=== PATIENT | male | born 1960 | race Caucasian/White ===

== ENCOUNTER 2017-01-26 17:21 | Emergency (ER) | payer OTHER ==
[~2017-01-26] VITALS: Ht 188 cm; Wt 116.3 kg
[2017-01-26 18:22] VITALS: BP 132/87
[2017-01-26] MEDS ORDERED: DIAZEPAM 5 MG TABLET ONE (18:57)
[2017-01-26] MEDS ORDERED: OXYcodone/APAP 5/325MG TABLET ONE (18:57)
[2017-01-26] MEDS ORDERED: KETOROLAC 30 MG/1 ML ONE (18:57)
[2017-01-26] MEDS ORDERED: OXYcodone/APAP 5/325MG TABLET PO ONE (19:00)
[2017-01-26] MEDS ORDERED: DIAZEPAM 5 MG TABLET PO ONE (19:00)
[2017-01-26] MEDS ORDERED: KETOROLAC 30 MG/1 ML IM ONE (19:00)
[2017-01-26] MEDS ORDERED: ONDANSETRON ODT 4 MG ONE ×2 (19:12→20:12)
[2017-01-26] MEDS ORDERED: ONDANSETRON ODT 4 MG PO ONE ×2 (19:30→20:00)
== END 2017-01-26 20:18 | disposition home or self-care (01) ==
LOC: ED 20:00
DX: M51.34 Other intervertebral disc degeneration, thoracic region (principal); M54.2 Cervicalgia; K21.9 Gastro-esophageal reflux disease without esophagitis
CPT/HCPCS: 72072; 72125; 96372; 99284; J1885; Q0162

== ENCOUNTER 2017-03-08 18:08 | Emergency (ER) | payer OTHER ==
[~2017-03-08] VITALS: Ht 188 cm; Wt 118.6 kg
[2017-03-08 18:10] VITALS: BP 148/96
== END 2017-03-08 20:20 | disposition home or self-care (01) ==
LOC: ED 20:00
DX: S92.354A Nondisplaced fracture of fifth metatarsal bone, right foot, initial encounter for closed fracture (principal); W19.XXXA Unspecified fall, initial encounter; Y93.89 Activity, other specified; Y92.009 Unspecified place in unspecified non-institutional (private) residence as the place of occurrence of the external cause; Y99.8 Other external cause status
CPT/HCPCS: 29515

== ENCOUNTER 2019-11-09 11:06 | Emergency (ER) | payer BC, OTHER ==
[~2019-11-09] VITALS: Ht 188 cm; Wt 112.2 kg
--- NOTE | 2019-11-09 11:30 | NUR ---
THIS IS A 59 YO M W/ C/O NUMBNESS IN RT GROIN RADIATES DOWN LEG X2 WEEKS. CAN NOT FEEL WHEN WIPING OR WHEN HAVING INTERCOURSE. 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 LAST NIGHT HAD EPISODE OF BOWEL INCONTINENCE. HX: SPONDYLOSIS, 3 EPIDURALS BETWEEN 02/2019-04/2019 DONE BY LEA VU ON RT FOOTX3 AND RT KNEE, DM. PT RESTING ON SILAS W/ AT BEDSIDE FOR EVAL. CALL LIGHT IN REACH. AWAITING ORDERS.
[2019-11-09] MEDS ORDERED: SODIUM CHLORIDE FLUSH 10ML SYR IVF ONE (12:00)
[2019-11-09 12:06] LABS: BASOPHILS # (AUTO) 0.03 x10^3/uL (0-0.1); BASOPHILS % (AUTO) 1 % (0-1); EOSINOPHILS # (AUTO) 0.19 x10^3/uL (0-0.4); EOSINOPHILS % (AUTO) 3 % (1-7); LYMPHOCYTES # (AUTO) 1.39 x10^3/uL (1-3.4); LYMPHOCYTES % (AUTO) 24 % (22-44); MD NO; MEAN CORPUSCULAR HEMOGLOBIN 32.9 pg (27.5-34.5); MEAN CORPUSCULAR HGB CONC 34.2 g/dL (33.2-36.2); MEAN CORPUSCULAR VOLUME 96.3 fL (81-97); MEAN PLATELET VOLUME 7.8 fL (7.4-10.4); MONOCYTES # (AUTO) 0.41 x10^3/uL (0.2-0.8); MONOCYTES % (AUTO) 7 % (2-9); NEUTROPHILS # (AUTO) 3.78 x10^3/uL (1.8-6.8); NEUTROPHILS % (AUTO) 65 % (42-75); PLATELET COUNT 181 x10^3/uL (130-400); RED BLOOD COUNT 4.84 x10^6/uL (4.38-5.82); RED CELL DISTRIBUTION WIDTH 12.7 % (9.4-14.8)
[2019-11-09 12:12] LABS: ALBUMIN 3.7 g/dL (3.4-5.0); ANION GAP 7 mmol/L (5-15); CALCIUM 8.4 mg/dL (8.5-10.1); CHLORIDE 106 mmol/L (98-107); CREATININE 1.18 mg/dL (0.7-1.3)
--- NOTE | 2019-11-09 12:14 | NUR ---
PIV STARTED, PT TO MRI.
[2019-11-09] MEDS ORDERED: GADOTERATE 7.5 MMOL/15 ML SYR ONE (12:30)
--- NOTE | 2019-11-09 13:12 | NUR ---
ALL TESTS RESULTED. PT IS UP FOR RECHECK AT THIS TIME.
[2019-11-09 14:02] VITALS: BP 121/75
--- NOTE | 2019-11-09 14:05 | NUR ---
PT AMBULATED TO BR W/ A STEADY GAIT.
--- NOTE | 2019-11-09 14:38 | NUR ---
Patient given discharge instructions and they have confirmed that they understand the instructions. Patient ambulatory with steady gait.
== END 2019-11-09 14:39 | disposition home or self-care (01) ==
LOC: ED 13:51
DX: M54.16 Radiculopathy, lumbar region (principal); R20.8 Other disturbances of skin sensation; E11.9 Type 2 diabetes mellitus without complications; K21.9 Gastro-esophageal reflux disease without esophagitis
CPT/HCPCS: 36415; 72158; 80048; 82040; 85025; 99284; A9575